=== PATIENT | male | born 1980 | race African-American/Black ===

== ENCOUNTER 2017-02-27 18:07 | Emergency (ER) | payer OTHER ==
[2017-02-27 18:39] VITALS: BP 154/87; PULSE 88; RESP 18; TEMP 98.4
--- NOTE | 2017-03-01 03:56 | CDI ---
Documentation Clarification OP Dear Dr. Hood Sanchez Please do addendum to ED report for missing whole ED report. Thank you, Luis Angel Moore Cookie Breaker If you have any questions, please contact [facility] at [phone] [facility]
== END 2017-02-27 18:37 | disposition home or self-care (01) ==
LOC: EC 18:07
DX: Z02.9 Encounter for administrative examinations, unspecified (principal)

== ENCOUNTER 2018-08-31 22:09 | Emergency (ER) | payer OTHER ==
[2018-08-31 22:44] VITALS: RESP 16; TEMP 98.6
[2018-08-31] MEDS ORDERED: ACETAMINOPHEN TAB 500 MG TAB PO STA (22:44)
[2018-08-31] MEDS ORDERED: DIPH,PERTUS(ACELL)TETVAC-LF 0.5 ML VIAL IM ONE (22:49)
--- NOTE | 2018-09-01 01:04 | XR ---
EXAM: XR Left Foot Complete, 3 or More Views CLINICAL HISTORY: ITS.REASON XR Reason: Pain TECHNIQUE: Frontal, lateral and oblique views of the left foot. COMPARISON: No relevant prior studies available. FINDINGS: Bones/joints: Posterior and plantar calcaneal spurs. Minimal spurring at the left first MTP joint. Minimal intertarsal/TMT spurring. No acute fracture. No dislocation. Soft tissues: Mild forefoot swelling. No radiopaque foreign body. IMPRESSION: No fracture or dislocation. Spurring as described above.
[2018-09-01] MEDS ORDERED: ACET/COD 300 MG/30 MG STARTER PACK 6 TAB BTL PO STA (01:31)
[2018-09-01] MEDS ORDERED: CEPHALEXIN 500MG STARTER PACK 4 CAP BTL PO STA (01:31)
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
[2018-09-01 01:54] VITALS: BP 146/107; PULSE 90
== END 2018-09-01 01:55 | disposition home or self-care (01) ==
LOC: EC 22:09
DX: S91.331A Puncture wound without foreign body, right foot, initial encounter (principal); Z23 Encounter for immunization; W26.0XXA Contact with knife, initial encounter
CPT/HCPCS: 90471; 90715; 99283